=== PATIENT | male | born 1960 | race Caucasian/White ===

== ENCOUNTER 2024-05-25 08:18 | Day surgery (SDC) | payer MEDICARE ==
[2024-05-24 10:32] VITALS: BMI 29.2
[2024-05-25] MEDS ORDERED: PROPOFOL 0 ML ONE (08:51)
[2024-05-25] MEDS ORDERED: Rocuronium Bromide 10 MG/ML (10ML VIAL) ONE (08:52)
[2024-05-25] MEDS ORDERED: Bupivacaine/Epinephrine 0.25% 30 ML VIAL ONE (09:55)
[2024-05-25] MEDS ORDERED: CEFAZOLIN 2 GM VIAL ONE (09:55)
[2024-05-25] MEDS ORDERED: Fentanyl 250 MCG/5 ML VIAL ONE (09:56)
[2024-05-25] MEDS ORDERED: Lidocaine 1% PF 5 ML VIAL ONE (09:56)
[2024-05-25] MEDS ORDERED: SUGAMMADEX SODIUM 200 MG/2 ML VIAL ONE (11:07)
[2024-05-25] MEDS ORDERED: Ketorolac Tromethamine 30 MG (1 mL) VIAL ONE (11:07)
[2024-05-25] MEDS ORDERED: Ondansetron PF 4 MG/2 ML Vial ONE (11:07)
[2024-05-25] MEDS ORDERED: PROPOFOL 20 ML ONE (11:15)
[2024-05-25] MEDS ORDERED: fentaNYL 50 mcg/mL 1 mL Vial ONE ×2 (11:44→11:57)
[2024-05-25] MEDS ORDERED: HYDROcodone/Acetaminophen 5/325 mg Tablet ONE (12:26)
== END 2024-05-25 13:25 | disposition home or self-care (01) ==
LOC: CSHSDC 08:18
PROVIDERS: ATTEND Surgery
PROC: 0WUF4JZ Supplement Abdominal Wall with Synthetic Substitute, Percutaneous Endoscopic Approach (ICD-10-PCS; principal; 2024-05-25)
DX: K43.9 Ventral hernia without obstruction or gangrene (principal); E11.9 Type 2 diabetes mellitus without complications; E78.00 Pure hypercholesterolemia, unspecified; D64.9 Anemia, unspecified; Z79.899 Other long term (current) drug therapy
CPT/HCPCS: 49593; C1781; J1885; J2405; J2704; J3010 ×2